=== PATIENT | male | born 1955 | race Caucasian/White ===

== ENCOUNTER 2024-05-21 10:27 | Inpatient (IN) ==
--- NOTE | 2024-04-22 10:02 | PAT Medication Instructions ---
Medication Instructions Date of Service April 22, 2024 Home Medications duloxetine 30 mg capsule,delayed release (Cymbalta) 30 mg PO QAM Turmeric/Curcumin 1,000 mg PO QAM ascorbic acid (vitamin C) 1,000 mg tablet (Vitamin C) 1 g PO QAM cholecalciferol (vitamin D3) 25 mcg (1,000 unit) tablet (Vitamin D3) 25 mcg PO QAM cyanocobalamin (vitamin B-12) 500 mcg tablet 500 mcg PO QAM gabapentin 300 mg capsule 300 mg PO HS multivitamin 1 tab PO QAM omega 6-pxq-wmi-fish oil 1,200 mg (144 mg-216 mg) capsule (Fish Oil) 1 cap PO QAM simvastatin 80 mg tablet 40 mg PO QAM STOP taking 2 weeks before surgery (or as soon as possible if surgery is within 2 weeks) omega 9-ydl-dfg-fish oil 1,200 mg (144 mg-216 mg) capsule (Fish Oil) 1 cap PO QAM Turmeric/Curcumin 1,000 mg PO QAM DO NOT take the morning of surgery multivitamin 1 tab PO QAM ascorbic acid (vitamin C) 1,000 mg tablet (Vitamin C) 1 g PO QAM cholecalciferol (vitamin D3) 25 mcg (1,000 unit) tablet (Vitamin D3) 25 mcg PO QAM cyanocobalamin (vitamin B-12) 500 mcg tablet 500 mcg PO QAM Take morning of surgery With a small sip of water, OTHERWISE NOTHING TO EAT OR DRINK AFTER MIDNIGHT: simvastatin 80 mg tablet 40 mg PO QAM duloxetine 30 mg capsule,delayed release (Cymbalta) 30 mg PO QAM Take evening before surgery gabapentin 300 mg capsule 300 mg PO HS Other Notes If you have any questions please call us at [phone] or [phone] or [phone] or [phone]
--- NOTE | 2024-04-28 11:23 | Anesthesiology Consultation ---
Date of Service April 28, 2024 Assessment & Plan (1) Encounter for pre-operative examination: - awaiting S PCP surgeon ordered pre-operative evaluation 05/06/24. Chart Review Chart Review: Pending: Refer to Additional Notes / Consult section and Patient seen in Pre Admission Testing Teaching & Discussion Pre-Anesthesia Teaching/Discussion Notes: Instructed NPO after midnight before surgery, except medications with 15 cc of water. Medication instructions provided according to the PAT guidelines. History Surgery Operation Date: 05/21/24 07:45 Proposed Procedures p L3-S1 Revision Decompression and Fusion, Spinal Cord Monitoring - Jose Hoff DO Height/Weight Height: 6 ft 4 in Weight: 97.8 kg Allergies Allergy/AdvReac Type Severity Reaction Status Date / Time Penicillins Allergy Intermediate Hives Verified 04/22/24 08:02 Medications Home Medications Medication Instructions Recorded Confirmed Last Taken duloxetine 30 mg capsule,delayed 30 mg PO QAM 05/16/22 04/22/24 Unknown release (Cymbalta) Turmeric/Curcumin 1,000 mg PO QAM 04/22/24 04/22/24 Unknown ascorbic acid (vitamin C) 1,000 mg 1 g PO QAM 04/22/24 04/22/24 Unknown tablet (Vitamin C) cholecalciferol (vitamin D3) 25 25 mcg PO QAM 04/22/24 04/22/24 Unknown mcg (1,000 unit) tablet (Vitamin D3) cyanocobalamin (vitamin B-12) 500 500 mcg PO QAM 04/22/24 04/22/24 Unknown mcg tablet gabapentin 300 mg capsule 300 mg PO HS 04/22/24 04/22/24 Unknown multivitamin 1 tab PO QAM 04/22/24 04/22/24 Unknown omega 0-esk-tgs-fish oil 1,200 mg 1 cap PO QAM 04/22/24 04/22/24 Unknown (144 mg-216 mg) capsule (Fish Oil) simvastatin 80 mg tablet 40 mg PO QAM 04/22/24 04/22/24 Unknown Past Medical History Medical History (Updated 04/28/24 @ 11:49 by Maricel Lira PA-C) Arthritis BPH (benign prostatic hyperplasia) Degenerative disc disease Depression History of epilepsy as a child>last episode at age 19 History of melanoma followed by [facility] dermatology History of tachycardia resolved after ablation/no current cards Hyperlipidemia Neuropathy feet Prostate cancer being monitored (no treatment) Restless leg syndrome Sleep apnea uses oral device (mouth piece) Spinal stenosis Patient denies h/o stroke, heart attack, heart failure, DM, HTN, blood clots/DVTs or blood transfusions. Exercise / Class Metabolic Activity II 4-5 Yardwork/Stairs/Walk up hill (denies chest discomfort or shortness of breath with one flight of stairs) Past Family History Family History Other No family history of adverse response to anesthesia Past Surgical History Surgical History H/O cardiac radiofrequency ablation (2018) H/O laminectomy (2018) L4 and L4 (2 surgeries) History of appendectomy History of arthroscopic knee surgery (2008) left History of cataract surgery (2020) right/left History of colonoscopy History of tonsillectomy History of total hip arthroplasty left/right [place] teeth removed Past Anesthesia History No Hx of Anesthesia Complications and No Family Hx of Anesthesia Complications History of PONV No Hx of PONV and No Hx of Motion Sickness Social History Smoking Status: Never smoker Do You Dip or Chew Tobacco: No Hx Alcohol Use: Yes alcohol intake frequency: holidays/special occasions only substance use type: does not use Review of Systems Patient denies chest pain, shortness of breath, dyspnea on exertion, reflux, fever, chills, cough, wheezing, or palpitations. Physical Exam Vital Signs Vitals BP 134/84 P 83 TEMP 98.2 SP02 96% on RA RESP 18 Physical Patient resting comfortably in chair in no acute distress, alert and oriented, responding appropriately throughout visit Full cervical extension range of motion without pain TMD 3.5 finger breadths Mallampati Score 3 Dentition: intact, denies chipped or loose teeth, caps/crowns, implants or bridges Lungs: normal respiratory effort. Good air movement, clear throughout to auscultation, no adventitious breath sounds Cardiac: regular rate and rhythm, no murmurs noted Carotid arteries: negative bruit bilat Lab Results Anesthesia Preop Results Results Anesthesia Widget: WBC 5.61 K/ul (4.8-10.8) 04/28/24 Hgb 14.7 g/dl (14.0-18.0) 04/28/24 Hct 44.4 % (42.0-52.0) 04/28/24 Plt 230 K/uL (130-400) 04/28/24 Na 140 mmol/L (136-145) 04/28/24 K 4.3 mmol/L (3.5-5.1) 04/28/24 Cl 105 mmol/L (98-107) 04/28/24 CO2 29 mmol/L (21-32) 04/28/24 BUN 17 mg/dl (6-23) 04/28/24 Creat 1.08 mg/dl (0.6-1.4) 04/28/24 Glucose Level 102 mg/dl (70-99(Fasting)) H 04/28/24 PT 10.7 Seconds (9.0-12.0) 04/28/24 PTT 26 Seconds (21-31) 04/28/24 INR 1.0 (0.9-1.1) 04/28/24 Urine Color Yellow 04/28/24 Urine Appearance Clear (Clear) 04/28/24 Urine pH 5.5 (4.5-7.5) 04/28/24 Urine Specific [place] 1.016 (1.000-1.030) 04/28/24 Urine Protein Negative (Negative) 04/28/24 Urine Glucose (UA) Negative (Negative) 04/28/24 Urine Ketones Negative (Negative) 04/28/24 Urine Blood Negative (Negative) 04/28/24 Urine Nitrite Negative (Negative) 04/28/24 Urine Bilirubin Negative (Negative) 04/28/24 Urine Urobilinogen Negative (Negative) 04/28/24 Urine Leukocyte Esterase Negative (Negative) 04/28/24 Blood Type A Positive 04/28/24 Antibody Screen NEGATIVE 04/28/24 Testing Electrocardiogram Date: 04/28/24 NSR, rate 74 bpm Chest X-Ray Date: 02/13/24 No active disease. Echocardiogram Date: 02/19/24 EF 60-64% Grade I diastolic dysfunction Normal LV wall motion Mild tricuspid regurgitation Mildly enlarged aortic root, 4.1 cm Mildly enlarged ascending aorta, 3.8 cm Other Testing Cardiac event monitor 02/23/24 Sinus rhythm (51-185, avg 76) 10 SVT runs Rare isolated SVEs, SVE couplets, SVE triplets, isolated VEs, VE couplets and VE triplets Ventricular bigeminy and trigeminy were present
[2024-05-21] MEDS ORDERED: ePHEDrine sulfate 50 MG/ML AMP IV PRN (11:02)
[2024-05-21] MEDS ORDERED: PROMETHAZINE HCL 6.25 MG in SODIUM CHLORIDE 0.9% 50 ML IV PRN (11:02)
[2024-05-21] MEDS ORDERED: HYDROmorphone INJ 2 MG/ML SYR/VIAL IV PRN (11:02)
[2024-05-21] MEDS ORDERED: DROPERIDOL 5 MG/2 ML VIAL IV PRN (11:02)
[2024-05-21] MEDS ORDERED: ATROPINE SULFATE 0.1 MG/ML 10ML SYR IV PRN (11:02)
[2024-05-21] MEDS ORDERED: fentaNYL citrate PF 100 MCG/2 ML VIAL ONE (11:04)
[2024-05-21] MEDS: SODIUM CHLORIDE 0.9% 1,000 ML IV SCH (11:14)
[2024-05-21] MEDS: ACETAMINOPHEN 500 MG TAB PO SCH (11:15)
[2024-05-21] MEDS: GABAPENTIN 300 MG CAP PO SCH ×2 (11:15→20:18)
--- NOTE | 2024-05-21 11:32 | History & Physical Bridge Note ---
Date of Service May 21, 2024 History & Physical Bridge Note I have examined the patient, reviewed the History & Physical and in the interval since the performance of the History & Physical I have noted the following changes of clinical significance: no changes noted
--- NOTE | 2024-05-21 11:33 | History & Physical Report ---
Date of Service May 21, 2024 Assessment & Plan (1) Lumbosacral spondylosis with radiculopathy: Plan: L3-S1 revision decompression and fusion History of Present Illness Chief Complaint: Back and leg pain Primary Care Provider: Jere Bullard DO This is a 69-year-old male who presents with chronic persistent back and leg pain after failing course of nonoperative care is here for surgical invention. Allergies Allergy/AdvReac Type Severity Reaction Status Date / Time Penicillins Allergy Intermediate Hives Verified 05/21/24 10:52 Home Medications Medication Instructions Recorded Confirmed Type duloxetine 30 mg capsule,delayed 30 mg PO QAM 05/16/22 05/21/24 History release (Cymbalta) Turmeric/Curcumin 1,000 mg PO QAM 04/22/24 05/21/24 History ascorbic acid (vitamin C) 1,000 mg 1 g PO QAM 04/22/24 05/21/24 History tablet (Vitamin C) cholecalciferol (vitamin D3) 25 25 mcg PO QAM 04/22/24 05/21/24 History mcg (1,000 unit) tablet (Vitamin D3) cyanocobalamin (vitamin B-12) 500 500 mcg PO QAM 04/22/24 05/21/24 History mcg tablet gabapentin 300 mg capsule 300 mg PO HS 04/22/24 05/21/24 History multivitamin 1 tab PO QAM 04/22/24 05/21/24 History omega 4-asx-jsn-fish oil 1,200 mg 1 cap PO QAM 04/22/24 05/21/24 History (144 mg-216 mg) capsule (Fish Oil) simvastatin 80 mg tablet 40 mg PO QAM 04/22/24 05/21/24 History Past Med/Surg History Problem List (Updated 05/21/24 @ 11:32 by Jose Hoff DO) Lumbosacral spondylosis with radiculopathy Encounter for pre-operative examination Medical History (Updated 05/21/24 @ 11:32 by Jose Hoff DO) Spinal stenosis Degenerative disc disease Arthritis Prostate cancer being monitored (no treatment) BPH (benign prostatic hyperplasia) History of melanoma followed by [facility] dermatology Depression Neuropathy feet Restless leg syndrome History of epilepsy as a child>last episode at age 19 History of tachycardia resolved after ablation/no current cards Hyperlipidemia Sleep apnea uses oral device (mouth piece) Surgical History History of total hip arthroplasty left/right History of arthroscopic knee surgery (2008) left History of colonoscopy History of appendectomy [place] teeth removed History of tonsillectomy History of cataract surgery (2020) right/left H/O cardiac radiofrequency ablation (2019) H/O laminectomy (2019) L4 and L4 (2 surgeries) Family History Other No family history of adverse response to anesthesia Social History Smoking Status: Never smoker Second Hand Exposure: Yes (as a child); Do You Dip or Chew Tobacco: No; Hx Alcohol Use: Yes Preferred Language: Hungarian Therapeutic Case Manager Required: No Beliefs That Will Affect Care: Jain Jain Beliefs: uatsdin Current Living Situation: Spouse Feels Safe at Home: Yes Safety Concerns: Feels Safe At This Time Assistive Devices: Glasses Assistive Devices Comment: reading glasses Physical Exam Physical Exam: Patient is alert and oriented Heart regular in rhythm Lungs clear Results & Data Results & Data Vital Signs (Past 12 Hours) Vital Signs Temp Pulse Resp BP Pulse Ox O2 Del Method 05/21/24 10:54 36.7 C 78 18 154/91 H 97 Room Air
[2024-05-21] MEDS ORDERED: PROPOFOL IV EMULSION 10 MG/ML 20 ML VIAL IV ONE (11:40)
[2024-05-21] MEDS ORDERED: ONDANSETRON INJ 2 MG/ML 2 ML VIAL ONE (11:40)
[2024-05-21] MEDS ORDERED: DEXAMETHASONE SOD INJ 4 MG/ML VIAL ONE (11:40)
[2024-05-21] MEDS ORDERED: ROCURONIUM BROMIDE 10 MG/ML 5 ML VIAL IV ONE ×2 (11:40→12:15)
[2024-05-21] MEDS ORDERED: LIDOCAINE 2% 2 ML VIAL/AMP(20MG/ML) INFIL ONE (11:40)
[2024-05-21] MEDS ORDERED: GLYCOPYRROLATE 0.2 MG/ML VIAL ONE (11:42)
[2024-05-21] MEDS: CLINDAMYCIN/D5W 900 MG/50 ML BAG IV SCH (11:51)
[2024-05-21] MEDS ORDERED: diphenhydrAMINE 50 MG/ML VIAL ONE (12:15)
[2024-05-21] MEDS ORDERED: ePHEDrine sulfate 50 MG/ML AMP ONE (12:36)
[2024-05-21] MEDS: BUPIVACAINE/EPINEPHRINE 0.25% 1:200,000 30 ML VIAL ONE (12:46)
[2024-05-21] MEDS ORDERED: PHENYLEPHRINE HCL 10 MG/ML VIAL ONE (12:49)
[2024-05-21] MEDS: FLOSEAL HEMOSTATIC MATRIX 10ML TOP ONE ×3 (14:40→16:07)
[2024-05-21] MEDS ORDERED: SUGAMMADEX SODIUM 200 MG/2 ML VIAL IV ONE (14:43)
--- NOTE | 2024-05-21 14:55 | Fluoroscopy Report ---
FL lumbar spine 2-3V CLINICAL HISTORY: L3-S1 DECOMPRESSION FUSION WITH INTERBODY TECHNIQUE: 2 views were obtained with the C-arm in the OR with the above procedure. Total fluoroscopy time was 42.3 seconds. Radiation dose was 27.7 mGy. Comparison: Comparison is made to CT lumbar spine 04/10/1994 FINDINGS/IMPRESSION: Intraoperative images were obtained of L3-S1 discectomy and fusion. Please correlate with intraoperative fluoroscopy and operative report. ACT 112: Negative or not required by law. Electronically signed by: Bhaskar Ornelas M.D. 05/21/2024 2:54 PM
--- NOTE | 2024-05-21 14:56 | Operative Report ---
Post Operative Report Pre & Post Diagnosis Operation Date: 05/21/24 12:05 Pre-Op Diagnosis: #1 lumbar spondylosis with radiculopathy. #2 lumbar spondylolisthesis with pars defect L5-S1. #3 degenerative scoliosis. Post-Op Diagnosis: Same I identified the patient and participated in the time-out.: Yes Procedure Operation Date: 05/21/24 12:05 Actual Procedures #1 revision decompression with bilateral medial facetectomies and foraminotomies L3-L4, L4-L5 and L5-S1. #2 posterior spinal fusion L3- S1. #3 placement posterior instrumentation L4-S1. #4 interbody fusion L4-L5 L5-S1. #5 placement of Spira 11 x 26 mm at L4-L5 and 14 x 26 mm x 2 at L5-S1. #6 placement locally harvested morselized autograft posterior gutters. #7 placement fuse collagen sponge, with Koros in the posterior lateral gutters and os design interbody space. #8 application of versa wrap over the exposed dura. Surgeon Jose Hoff, DO [employer] China Evans Estimated Blood Loss 700 Findings Consistent with Post-Op Diagnosis Specimens None Indications This is a 69-year-old male presents problems diagnosis of failed course of nonoperative care is here for surgical invention. Description of Procedure Patient was met with identified informed consent obtained. Patient was then taken to the operative suite after undergoing intubation placed in a prone position on the Adalberto table on top of the Mario frame. All bony promises well-padded eyes inspected to ensure no external pressure placed upon the. This point the lumbar spine was prepped and draped in normal sterile fashion. Sharp dissection with the assistance of Bovie cautery from down to and exposing the remaining lamina transverse processes of L3-L4-L5 and sacral ala bilaterally. From a caudal cephalad fashion revision complete laminectomy of L5 was performed. Obvious bilateral pars defect noted. Significant foraminal stenosis was identified and addressed. I then performed a revision laminectomy of L4 with bilateral medial facetectomies and foraminotomies again addressing severe foraminal disease. Partial laminectomy of L3 was also performed including bilateral medial facetectomies. Pedicle screws then placed in L4-L5 S1 levels bilaterally with assistance of fluoroscopy in the proper size elias placed. By way of transforaminal approach on the right discectomy of L5-S1 was performed endplates corrected to subcortical bleeding bone and a 14 x 26 mm Spira cage filled with os design bone graft tapped in position. Then proceeded to the left transforaminal region at L5-S1. Discectomy again performed endplates guided to subcortical main bone and a second 14 x 26 mm Spira cage filled with os designed tapped in position. Then proceeded L4-L5 and by way of transforaminal approach on the left a complete discectomy was performed endplates printed to subcortical and bone and a 11 x 26 mm Spira cage filled with os design tapped into position. The rods were then locked in final position bilaterally. The transverse processes of L3-L4-L5 and the sacral ala burred to subcortical bleeding bone. Infuse collagen sponge, with Koros and local autograft placed in the posterior gutters. 15 round ASHLEY drain inserted. Versa wrap placed over the exposed dura. Incision was then closed with 1 Vicryl fascia 2-0 Vicryl subcutaneously and 4 Monocryl for final skin closure. Steri-Strips and sterile dressing placed. Patient waken taken to PACU stable condition. Please note spinal cord monitoring was utilized at the procedure no changes noted. China Evans was present at the entire surgery none patient positioning complex portion of the surgery and possible closure. Im ordering 20 grams of Triple Penn Collagen Powder ([employer] [id number]) to treat an incision wound that was caused by a spine procedure. The incision is approximately 2 cm(W) x 4 cm(L) into the joint (D) in size and is a full thickness wound. Triple Penn collagen comes in 1 gram packets so 20 packets were ordered. Given the size of the wound, with light to moderate exudate I chose to order a 20 day supply. The patient will be provided instructions for proper application of the collagen wound kit. The patient will be asked to apply the collagen powder daily and then cover it with sterile dressings dispensed. Collagen was selected as I expect the collagen to attract monocytes and fibroblasts, act as a sacrificial substrate for MMPs, and ultimately proved a matrix for tissue and vessel growth. The collagen will act as a primary dressing in this scenario. It is medically necessary for proper healing of these wounds to improve bioavailability and contact with each wound surface, this is also to help prevent infection of wounds and promote healing ultimately leading to a better healing outcome and limit the risk of infection. I attest to the content of the Intraoperative Record and any orders documented therein. Any exceptions are noted below.
[2024-05-21] MEDS: ceFAZolin 330 MG/ML 1 GM VIAL ONE (16:07)
--- NOTE | 2024-05-21 16:07 | Anesthesiology Progress Note ---
Date of Service May 21, 2024 Anesthesia Post Procedure Vital Signs Vital Signs: Temp Pulse Resp BP Pulse Ox O2 Del Method O2 Flow Rate 05/21/24 16:00 78 13 129/73 98 Nasal Cannula 2 05/21/24 15:45 36.4 C L 80 13 129/75 99 Nasal Cannula 2 05/21/24 15:35 82 12 125/81 98 Oxymask 2 05/21/24 15:25 80 13 135/80 100 Oxymask 9 05/21/24 15:15 78 14 130/75 100 Oxymask 9 05/21/24 15:07 36.2 C L 84 16 141/85 H 100 Oxymask 9 05/21/24 10:54 36.7 C 78 18 154/91 H 97 Room Air Transfer of Care Handoff Completed per policy Notes Mental Status: alert / awake / arousable and participated in evaluation Patient Amnestic to Procedure: Yes Nausea / Vomiting: adequately controlled Pain: adequately controlled Airway Patency, RR, SpO2: stable & adequate BP & HR: stable & adequate Hydration State: stable & adequate Anesthetic Complications: no major complications apparent and Pt Satisfied with anesthetic care
[2024-05-21] MEDS: LR 15ML/HR IV SCH (16:10)
[2024-05-21] MEDS: LR 60ML/HR IV SCH (16:10)
[2024-05-21] MEDS ORDERED: METOCLOPRAMIDE HCL INJ 5 MG/ML 2 ML VIAL IV PRN (16:11)
[2024-05-21] MEDS ORDERED: PROMETHAZINE 12.5 MG/50.5 ML BAG IV PRN (16:11)
[2024-05-21] MEDS ORDERED: ALUMINUM/MAGNESIUM SUSP 30 ML UDC PO PRN (16:11)
[2024-05-21] MEDS ORDERED: HYDROmorphone INJ 1 MG/ML SYRINGE IV PRN (16:11)
[2024-05-21] MEDS ORDERED: ONDANSETRON INJ 2 MG/ML 2 ML VIAL IV PRN (16:11)
[2024-05-21] MEDS ORDERED: HYDROmorphone INJ 0.5 MG/0.5 ML SYR IV PRN (16:11)
[2024-05-21] MEDS ORDERED: ACETAMINOPHEN 1,000 MG/100 ML VIAL IV PRN (16:11)
[2024-05-21] MEDS ORDERED: hydrOXYzine HCl 25 MG TAB PO PRN (16:11)
[2024-05-21] MEDS ORDERED: bisacodyL 10 MG SUPP PR PRN (16:11)
[2024-05-21] MEDS ORDERED: ACETAMINOPHEN 500 MG TAB PO PRN (16:11)
[2024-05-21] MEDS ORDERED: MAGNESIUM HYDROXIDE SUSP 30 ML UDC PO PRN (16:11)
[2024-05-21] MEDS ORDERED: DO NOT ADMINISTER FLU VACCINE PRN (16:11)
[2024-05-21] MEDS ORDERED: LORazepam 0.5 MG TAB PO PRN (16:11)
[2024-05-21] MEDS ORDERED: ONDANSETRON 4 MG OD TAB PO PRN (16:11)
[2024-05-21] MEDS ORDERED: DO NOT ADMINISTER PNEUMOCOCCAL VACCINE PRN (16:11)
[2024-05-21] MEDS ORDERED: NALOXONE HCL 0.4 MG/1 ML VIAL/CARP IV PRN (16:11)
[2024-05-21] MEDS ORDERED: FAMOTIDINE 20 MG TAB PO PRN (16:11)
[2024-05-21] MEDS ORDERED: LORazepam 2 MG/1 ML VIAL IV PRN (16:11)
[2024-05-21] MEDS ORDERED: SOD PHOSPHATE/SOD BIPHOSPHATE ENEMA 132 ML BTL PR PRN (16:11)
[2024-05-21] MEDS: oxyCODONE HCL IR 5 MG TAB (IMMEDIATE RELEASE) PO PRN (17:13)
--- NOTE | 2024-05-21 17:32 | Consultation ---
Date of Consultation May 21, 2024 Assessment & Plan (1) Lumbosacral spondylosis with radiculopathy: (2) Encounter for pre-operative examination: (3) Arthritis: (4) Prostate cancer: (5) BPH (benign prostatic hyperplasia): (6) Depression: (7) Neuropathy: (8) Hyperlipidemia: Plan Assessment and plan: Lumbar radiculopathy s/p L3-S1 [id number] Pain control/DVT prophylaxis/PT/OT per primary team Hx depression/neuropathy: Continue gabapentin/duloxetine Hx HLD: Continue simvastatin A total of 45 minutes was spent on reviewing diagnostic imaging/chart review/facilitating plan of care/discussion with consultants We recommend routine blood work in a.m. Will follow with you Full code Supervising Physician Co-Signing Physician Notes Patient is a 69-year-old male with history of hypertension, lumbar radiculopathy, BPH and other medical problems was consulted for postop medical management. Patient underwent lumbar decompression, fusion surgery by Dr. Hoff for lumbar spondylosis with radiculopathy. Patient complains of lower back pain at surgical site postoperatively but otherwise feels well. Denies any chest pain, dyspnea, nausea, vomiting, abdominal pain. Please review HPI for complete details. Physical Exam: Vitals signs as noted above General Appearance:Moderately built and nourished, no apparent distress Head: normocephalic, Atraumatic Eyes: normal inspection, EOMI Neck: supple, Trachea midline Respiratory/Chest: Normal breath sounds, CTA, No accessory muscle use Cardiovascular: S1, S2, No murmur Abdomen/GI:Soft, Non tender, Bowel sounds present Back: Surgical site in dressing, drain Extremities/Musculoskeletal:normal inspection, no edema Neurologic/Psych:AAOX3, grossly no focal neurological deficits Skin: normal color, warm Lumbosacral spondylosis with radiculopathy S/P lumbar decompression, fusion surgery by Dr. Hoff Monitor for postop anemia Incentive spirometry DVT prophylaxis as per primary team Pain control PT OT as able Expect leukocytosis is currently on dexamethasone I personally interviewed and examined at bedside. Patient's care is coordinated with Corey ZAMBRANO. I have reviewed the advanced practitioner's documentation, and I agree with plan of care. Please refer to the documentation above for details of patient's presentation and for discussion of other issues. I spent a total [id number] coordinating, documenting, and providing care for this patient excluding time spent in the performance of separately billed services. History of Present Illness Requesting Physician: Jose Hoff DO Reason for Consultation: S/p L3-S1 decompression and fusion Attending Physician: Jose Hoff DO History of Present Illness The patient is a 69-year-old male with a past medical history of HLD, lumbar radiculopathy, degenerative scoliosis who presents to [facility] on 05/21/2024 s/p L3-S1 decompression and fusion. We are asked see the patient for postop medical management. On exam, The patient denies any complaints. He has full ROM, denies any numbness/tingling. Does report some back pain but denies any shortness of breath or chest pain/nausea/vomiting/diarrhea. Vital signs are stable. Allergies Allergy/AdvReac Type Severity Reaction Status Date / Time Penicillins Allergy Intermediate Hives Verified 05/21/24 10:52 Home Medications Medication Instructions Recorded Confirmed Type duloxetine 30 mg capsule,delayed 30 mg PO QAM 05/16/22 05/21/24 History release (Cymbalta) Turmeric/Curcumin 1,000 mg PO QAM 04/22/24 05/21/24 History ascorbic acid (vitamin C) 1,000 mg 1 g PO QAM 04/22/24 05/21/24 History tablet (Vitamin C) cholecalciferol (vitamin D3) 25 25 mcg PO QAM 04/22/24 05/21/24 History mcg (1,000 unit) tablet (Vitamin D3) cyanocobalamin (vitamin B-12) 500 500 mcg PO QAM 04/22/24 05/21/24 History mcg tablet gabapentin 300 mg capsule 300 mg PO HS 04/22/24 05/21/24 History multivitamin 1 tab PO QAM 04/22/24 05/21/24 History omega 8-toz-kci-fish oil 1,200 mg 1 cap PO QAM 04/22/24 05/21/24 History (144 mg-216 mg) capsule (Fish Oil) simvastatin 80 mg tablet 40 mg PO QAM 04/22/24 05/21/24 History Patient History Medical History (Updated 05/21/24 @ 11:32 by Jose Hoff DO) Spinal stenosis Degenerative disc disease Arthritis Prostate cancer being monitored (no treatment) BPH (benign prostatic hyperplasia) History of melanoma followed by [facility] dermatology Depression Neuropathy feet Restless leg syndrome History of epilepsy as a child>last episode at age 19 History of tachycardia resolved after ablation/no current cards Hyperlipidemia Sleep apnea uses oral device (mouth piece) Surgical History History of total hip arthroplasty left/right History of arthroscopic knee surgery (2008) left History of colonoscopy History of appendectomy [place] teeth removed History of tonsillectomy History of cataract surgery (2020) right/left H/O cardiac radiofrequency ablation (2018) H/O laminectomy (2019) L4 and L4 (2 surgeries) Family History Other No family history of adverse response to anesthesia Social History Smoking Status: Never smoker Second Hand Exposure: Yes (as a child); Do You Dip or Chew Tobacco: No; Hx Alcohol Use: Yes Preferred Language: Guyanese [employer] Supplies Sales Representative Required: No Beliefs That Will Affect Care: Taoism Taoism Beliefs: religious Current Living Situation: Spouse Feels Safe at Home: Yes Safety Concerns: Feels Safe At This Time Assistive Devices: Glasses Assistive Devices Comment: reading glasses Review of Systems Review of Systems: All systems reviewed & are unremarkable except as noted in HPI & below Physical Exam Constitutional: WD/WN, vitals as above Eyes: PERRL, conjunctivae normal, anicteric sclerae ENMT: external ear and nose normal, oropharynx normal Neck: trachea midline, no thyromegaly Respiratory: normal respiratory effort, lungs clear to auscultation Cardiovascular: RRR, no murmur, no edema Gastrointestinal (Abdomen): normal bowel sounds, soft, nontender, no hepatosplenomegaly Musculoskeletal: no cyanosis or clubbing, extremities motor strength 5/5 (No numbness/tingling, full ROM, bulb drain in place) Skin: no rashes, warm and dry Neurologic: PERRL, EOMI, accommodation nl, no face palsy, no dysarthria Psychiatric: A+Ox3, euthymic affect Lymphatic: no cervical or axillary lymphadenopathy Results & Data Vital Signs (Past 12 Hours) Vital Signs Temp Pulse Pulse Resp BP Pulse Ox O2 Del Method 05/21/24 16:48 36.4 C L 81 16 127/73 95 Room Air 05/21/24 16:20 36.4 C L 84 16 128/76 95 Room Air 05/21/24 16:00 78 13 129/73 98 Nasal Cannula 05/21/24 15:45 36.4 C L 80 13 129/75 99 Nasal Cannula 05/21/24 15:35 82 12 125/81 98 Oxymask 05/21/24 15:25 80 13 135/80 100 Oxymask 05/21/24 15:15 78 14 130/75 100 Oxymask 05/21/24 15:07 36.2 C L 84 16 141/85 H 100 Oxymask 05/21/24 10:54 36.7 C 78 18 154/91 H 97 Room Air O2 Flow Rate 05/21/24 16:48 05/21/24 16:20 05/21/24 16:00 2 05/21/24 15:45 2 05/21/24 15:35 2 05/21/24 15:25 9 05/21/24 15:15 9 05/21/24 15:07 9 05/21/24 10:54 Diagnostic Findings Laboratory Results Blood Type A Positive 05/21/24 10:51 Antibody Screen NEGATIVE 05/21/24 10:51 Crossmatch See Detail 05/21/24 10:51 Impressions Lumbar Spine X-Ray 05/21/24 11:50 FL lumbar spine 2-3V CLINICAL HISTORY: L3-S1 DECOMPRESSION FUSION WITH INTERBODY TECHNIQUE: 2 views were obtained with the C-arm in the OR with the above procedure. Total fluoroscopy time was 42.3 seconds. Radiation dose was 27.7 mGy. Comparison: Comparison is made to CT lumbar spine 04/10/1994 FINDINGS/IMPRESSION: Intraoperative images were obtained of L3-S1 discectomy and fusion. Please correlate with intraoperative fluoroscopy and operative report. ACT 112: Negative or not required by law. Electronically signed by: Bhaskar Ornelas M.D. 05/21/2024 2:54 PM
[2024-05-21] MEDS: DOCUSATE SODIUM/SENNA 50/8.6MG TAB PO SCH (20:18)
[2024-05-21] MEDS: CLINDAMYCIN/D5W 600 MG/50 ML BAG IV SCH (20:22)
[2024-05-22 05:15] LABS: Basophils # (auto) 0.01 K/uL (0.00-0.20); Basophils % (auto) 0.1 %; Hematocrit (blood only) 36.5 % (42.0-52.0); Hemoglobin 12.2 g/dl (14.0-18.0); Immature Granulocytes # (auto) 0.04 K/uL (0.01-0.20); Immature Granulocytes % (auto) 0.3 %; Lymphocytes # (auto) 0.77 K/uL (1.20-3.40); Lymphocytes % (auto) 6.4 %; Mean Corpuscular Hemoglobin 32.4 pg (25.0-34.0); Mean Corpuscular Hgb Conc 33.4 g/dL (32.0-36.0); Mean Corpuscular Volume 97.1 fL (80.0-100.0); Mean Platelet Volume 10.5 fL (9.4-12.4); Monocytes # (auto) 0.96 K/uL (0.11-0.59); Monocytes % (auto) 7.9 %; Neutrophils # (auto) 10.33 K/uL (1.40-6.50); Neutrophils % (auto) 85.3 %; Platelet Count 215 K/uL (130-400); RDW Coefficient of Variation 13.2 % (11.5-14.5); RDW Standard Deviation 47.2 fL (36.4-46.3); Red Blood Count 3.76 M/uL (4.70-6.10); White Blood Count 12.11 K/ul (4.8-10.8)
[2024-05-22 05:31] LABS: BUN Creatinine Ratio 16.5 (10-20); Calcium 8.7 mg/dl (8.6-10.3); Creatinine Clr Calc Pharmacy 80.8 ml/min; Potassium 4.8 mmol/L (3.5-5.1)
[2024-05-22] MEDS: POLYETHYLENE (MIRALAX) 17 GM PACK PO SCH (05:59)
[2024-05-22] MEDS: dexAMETHasone 6 MG in SYRINGE 0 ML IV SCH (08:22)
[2024-05-22] MEDS: CHOLECALCIFEROL 25 MCG (1000 UNITS) TAB PO SCH (08:22)
[2024-05-22] MEDS: SIMVASTATIN 40 MG TAB PO SCH (08:22)
[2024-05-22] MEDS: DULoxetine HCL 30 MG CAP PO SCH (08:22)
[2024-05-22] MEDS: CYANOCOBALAMIN (B-12) 500 MCG TABLET PO SCH (08:22)
[2024-05-22] MEDS ORDERED: ASCORBIC ACID 500 MG TAB PO SCH (09:00)
[2024-05-22] MEDS: ASCORBIC ACID 500 MG TAB PO SCH (09:55)
--- NOTE | 2024-05-22 10:29 | Orthopedic Progress Note ---
Date of Service May 22, 2024 Assessment & Plan (1) Lumbosacral spondylosis with radiculopathy: Plan: At this time we will continue physical therapy monitor his ASHLEY output hopefully discharge home in the next few days. Admission and Anticipated Discharge Date Admission Date: May 21, 2024 Subjective Patient's back pain is controlled leg symptoms markedly improved Physical Exam Physical Exam: Patient is in the chair at the bedside. Is comfortable. Distracted testing. Results & Data Vital Signs (Past 12 Hours) Vital Signs Temp Pulse Resp BP Pulse Ox O2 Del Method 05/22/24 07:39 36.7 C 77 16 112/73 94 Room Air 05/22/24 03:27 36.3 C L 80 15 127/71 95 Room Air 05/21/24 23:02 36.7 C 89 18 112/70 94 Room Air
--- NOTE | 2024-05-22 11:03 | Hospitalist Progress Note ---
Date of Service May 22, 2024 Assessment & Plan (1) Lumbosacral spondylosis with radiculopathy: (2) Encounter for pre-operative examination: (3) Arthritis: (4) Prostate cancer: (5) BPH (benign prostatic hyperplasia): (6) Depression: (7) Neuropathy: (8) Hyperlipidemia: Plan Patient is a 69-year-old male with history of hypertension, lumbar radiculopathy, BPH and other medical problems who underwent lumbar decompression, fusion surgery by Dr. Hoff for lumbar spondylosis with radiculopathy. Lumbosacral spondylosis with radiculopathy S/P lumbar decompression, fusion surgery by Dr. Hoff on 05/21/24 Monitor for postop anemia Incentive spirometry DVT prophylaxis as per primary team Pain control PT OT as able Hx depression/neuropathy Continue gabapentin/duloxetine Hx HLD: Continue simvastatin Continue supplements as ordered. Diet: Regular DVT prophylaxis: per primary surgical team Dispo: per primary team Thank you for this consultation. We will follow the patient with you during their hospital stay. You can reach a member of the [facility] Hospitalist Team 01/01 via the hospitalist role on tiger text. Admission and Anticipated Discharge Date Admission Date: May 21, 2024 Subjective patient was seen in the a.m. laying in bed Noted that his pain was controlled, had been up and walking the halls He stated he was a bit sore from that but overall doing well, denied acute concerns Denies any chest pain, shortness of breath heart palpitations. Has not yet started passing gas Review of Systems Review of Systems: All systems reviewed & are unremarkable except as noted in Subjective Physical Exam Physical Exam: General: Alert, oriented. No acute distress Psych: Appropriate mood and affect Neuro: difficulty with movements in the bed, lower back bandaged HEENT: NC/AT CV: RRR Resp: Breath sounds clear bilaterally, no increased effort of breathing Abdomen: Soft, nontender Extremities: No edema in lower extremities bilaterally. Results & Data Results & Data Vital Signs (Past 12 Hours) Vital Signs Temp Pulse Resp BP Pulse Ox O2 Del Method 05/22/24 07:39 36.7 C 77 16 112/73 94 Room Air 05/22/24 03:27 36.3 C L 80 15 127/71 95 Room Air
[2024-05-22] MEDS: traMADol HCL 50 MG TABLET PO PRN (18:15)
[2024-05-22] MEDS: diphenhydrAMINE Capsule 25 MG CAP PO PRN (21:31)
--- OUTSIDE RECORDS SUMMARY | 2024-05-22 22:04 | External Medical Summary | Summary of Care ---
Author Name Unknown Organization [facility] [address] [facility] [address] Phone [phone] Care Team Providers Care News Videotape Editor Name Role Phone Jere Bullard DO Primary Care Provider [phone] Reason for Visit * Reason Onset Date Comments Appointment 02/12/2024 Encounter Details Date Type Department Care Team (Late st Contact Info) Description 02/12/2024 Telephone Family Practice [facility] [address] [facility] [place] [address] Jere Bullard DO [address] [facility] [place] [address] Appointment Allergies Active Allergy Reactions Criticality Noted Date Comments Penicillins Hives 10/08/2016 documented as of this encounter (statuses as of 05/13/2024) Medications Ascorbic Acid 1000 MG Oral Tablet Take 1 Tablet by mouth in the morning. Active Cyanocobalamin 100 MCG Oral Tablet Take 1 Tablet by mouth in the morning. Active Reliance 3-6-9 Oral Capsule Take by mouth. Ac tive Glucosamine-Cho ndroitin 500-400 MG Oral Tablet Take 1 Tablet by mouth in the morning. Active Triamcinolone Acetonide 0.1 % External Cream (Aristocort) 3 Active Sildenafil Citrate 100 MG Oral Tablet Take 1 Tablet by mouth. 2 Active Multi-Vitamin Oral Tablet Take 1 Tablet by mouth in the morning. Active Fluticasone Propionate 50 MCG/ACT Nasal Suspension (Flonase) Administer 2 Sprays into each nostril in the morning. 2 Active Simvastatin 80 MG Oral Tablet (Zocor) Take 0.5 Tablets by mouth in the morning. 30 Tablet 5 3 Active tiZANidine HCl 2 MG Oral Tablet (Zanaflex)Indic ations:Spasm of muscle Take 1 Tablet by mouth every 6 hours as needed for Muscle spasms. 30 Tablet 3 Active DULoxetine HCl 30 MG Oral Capsule Delayed Release Particles (Cymbalta) Take 1 Capsule by mouth in the morning. 30 Capsule 11 4 Active Respiratory Therapy Supplies Device Use as directed. OAT Active Iron-Vitamin C 65-125 MG Oral Tablet (Vitron C) Take 1 tablet by mouth every other day as tolerated for PLMD 45 Tablet 1 4 Active Gabapentin 300 MG Oral Capsule (Neurontin) Take 1 Capsule by mouth at bedtime. 30 Capsule 5 4 Active documented as of this encounter (statuses as of 05/13/2024) Active Problems Problem Noted Date Diagnosed Date Enlargement of aortic root 02/22/2024 Overview (02/22/2024): Recheck 03/05 Prostate cancer 02/14/2023 Neuropathy of right lower extremity 02/14/2023 Impaired fasting glucose 02/14/2023 PANCHO (obstructive sleep apnea) 07/25/2022 Pure hypercholesterolemia 07/25/2022 documented as of this encounter (statuses as of 05/13/2024) Immunizations Name Administration Dates Next Due COVID-19, MRNA-LNP, PF, 50 M CG/0.5 mL, 12 YRS AND ABOVE, IM (MODERNA-Spikevax) 05/10/2023 Pneumococcal Conjugate Vacc, 13 Valent (Prevnar) 02/14/2019,03/28/2018 Pneumococcal Polysaccharide PPV23 (Pneumovax) 04/28/2020,05/09/2007 Season Influenza, Quad, PF, Adjuvanted, 65+ Yrs, IM (FLUAD) 03/07/2023,04/11/2022,03/03/2021,02/02 TD - Tetanus/Diptheria (ADULT) 06/19/2008 Zoster Vaccine Recombinant (Shingrix) 07/09/2019 ,03/07/2019 documented as of this encounter Social History Tobacco Use Types Packs/Day Years Used Date Smoking Tobacco: Never Smokeless Tobacco: Never Alcohol Use Standard Drinks/Week Comments No 0 (1 standard drink = 0.6 oz pur e alcohol) Hunger Vital Sign Answer Date Recorded Within the past 12 months, y ou worried that your food would run out before you got the money to buy more. Never true 04/01/20 24 Within the past 12 months, t he food you bought just didn't last and you didn't have money to get more. Never true 04/01/2024 Childcare Answer Date Recorded Do you feel overwhelmed with taking care of a child, family member or friend? No 04/01/2024 Does your family need help f inding childcare? (Household - for ages 0-17 years) Not on file 04/01/2024 Clothing Answer Date Recorded Have you been unable to get clothing when it was really needed? No 04/01/2024 Is your family able to get c lothes or diapers when needed? (Household - for ages 0-17 years) Not on file 04/01/2024 Personal Safety Answer Date Recorded Do you feel unsafe or have concerns for your saf ety? No 04/01/2024 Do you have concerns for you r family's safety? (Household - for ages 0-17 years) Not on file 04/01/2024 Utilities Answer Date Recorded Do you have trouble paying y our heating, water, or electric bill? No 04/01/2024 Is your family able to pay t he heat, water, or electric bill? (Household - for ages 0-17 years) Not on file 04/01/2024 Does your family have access to good internet? (Household - for ages 0-17 years) Not on file 04/01/2024 Employment Status Answer Date Recorded Are you unemployed or without regular income? No 04/01/2024 Does the household have a re gular source of income? (Household - for ages 0-17 years) Not on file 04/01/2024 Social Connections Answer Date Recorded How often do you feel lonely or isolated from th ose around you? Never 04/01/2024 Financial Resource Strain Answer Date R ecorded Do you have any trouble payi ng for your medications, or do you think you might in the future? No 04/01/2024 Does your family have troubl e paying for medicine? (Household - for ages 0-17 years) Not on file 04/01/2024 Transportation Needs Answer Date Record ed READ ONLY Do you have troubl e getting a ride to medical visits or work? Never True 04/01/2024 Does your family have a hard time getting a ride to doctors visits? (Household - for ages 0-17 years) Not on file 04/01/2024 Has lack of transportation k ept you from medical appointments, meetings, work, or from getting things needed for daily living? Check all that apply. No 04/01/2024 Do you (or your family) have trouble finding or paying for a ride (transportation)? (Household - for ages 0-17 years) Not on file 04/01/2024 Housing Stability Answer Date Recorded Do you currently live in a s helter or have no steady place to sleep at night? No 04/01/2024 READ ONLY Do you think you a re at risk of becoming homeless? No 04/01/2024 Does your family worry about paying for your home or becoming homeless? (Household - for ages 0-17 years) Not on file 1 Are you homeless or worried that you might be in the future? No 04/01/2024 Are you (or your family) harmeet eless or worried that you might be in the future? (Household - for ages 0-17 years) Not on file Food Insecurity Answer Date Recorded Do you need food for this week? No 04/01/2024 Are you able to get enough f ood for your family? (Household - for ages 0-17 years) Not on file 04/01/2024 Does your family need food t his week? (Household - for ages 0-17 years) Not on file 04/01/2024 Do you always have enough fo od for your family? 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 Please contact pt by phone number listed on profile to schedule appt. Refer to referral for scheduling. documented in this encounter Plan of Treatment Upcoming Encounters Date Type Department Care Team (Late st Contact Info) Description 05/14/2024 1:30 PM EST Imaging Radiology [facility] [address] [place] [address] 11/12/2024 1:00 PM EDT Office Visit Family Practice [facility] [address] [facility] [place] [address] Jere Bullard, DO [address] [facility] [address] 12/09/2024 9:30 AM EDT Office Visit [facility] [address] [place] [id number] Ayanna Wan CRNP [address] [place] [id number] Health Maintenance Due Date Last Done Comments Depression Screening 1965 Cologuard 1998 Colonoscopy 1998 Colorectal Cancer Screening 1998 Fecal Occult Blood Test 1998 Sigmoidoscopy 1998 DTap/Tdap Vaccines (1 - Tdap) 06/20/2008 06/19/2008 Adult Wellness Visit 2019 Lipid Panel 09/25/2028 09/26/2023, 08/03/2022 Zoster Vaccines Completed 07/09/2019, 03/07/2019 Pneumococcal Vaccine: 65+ Years Completed 04/28/2020, 02/14/2019, 03/28/2018, Additional history exists Influenza Vaccine (FLU shot) Completed 03/2024, 02/19/2024, 03/07/2023, Additional history exists COVID-19 Vaccine Completed 03/11/2024, 05/10/2023 HPV (Gardasil) Vaccine Aged Out No lo nger eligible based on patient's age to complete this topic Hepatitis B Vaccine Aged Out No longe r eligible based on patient's age to complete this topic MENINGOCOCCAL (MENACTRA/MENVEO) Aged Out No longer eligible based on patient's age to complete this topic documented as of this encounter Medical Devices Not on filedocumented as of this encounter Care Teams News Videotape Editor Relationship Specialty Start Date End Date Jere Bullard DO [address] [place] [address] PCP - General Family Medicine 07/25/22 documented as of this encounter
--- OUTSIDE RECORDS SUMMARY | 2024-05-22 22:04 | External Medical Summary | Summary of Care ---
Author Name Unknown Organization [facility] Address [address] [facility] [place] [address] Phone [phone] Care Team Providers Care Landfill Gas Collection Operator Name Role Phone Jere Bullard DO Primary Care Provider [phone] Encounter Details Date Type Department Care Team (Late st Contact Info) Description 05/01/2024 Orders Only Family Practice [facility] [place] [address] [facility] [place] [address] Jere Bullard DO 200 [facility] [place] [address] Allergies Active Allergy Reactions Criticality Noted Date Comments Penicillins Hives 10/08/2016 documented as of this encounter (statuses as of 05/01/2024) Medications Ascorbic Acid 1000 MG Oral Tablet Take 1 Tablet by mouth in the morning. Active Cyanocobalamin 100 MCG Oral Tablet Take 1 Tablet by mouth in the morning. Active [place] 3-6-9 Oral Capsule Take by mouth. Ac [...] at bedtime. 30 Capsule 5 4 Active Diclofenac Sodium 1 % External Gel (Voltaren) Apply topically to affected area 2 times a day. Apply to right lower leg 100 g 5 4 Active documented as of this encounter (statuses as of 05/01/2024) Active Problems Problem Noted Date Diagnosed Date Enlargement of aortic root 02/22/2024 Overview (02/22/2024): Recheck 03/05 Prostate cancer 02/14/2023 Neuropathy of right lower extremity 02/14/2023 Impaired fasting glucose 02/14/2023 PANCHO (obstructive sleep apnea) 07/25/2022 Pure hypercholesterolemia 07/25/2022 documented as of this encounter (statuses as of 05/01/2024) Immunizations Name Administration Dates Next Due COVID-19, MRNA-LNP, PF, 30 M CG/0.3 mL, 12 YRS AND ABOVE, IM (PFIZER-Comirnaty) 03/11/2024 COVID-19, MRNA-LNP, PF, 50 M CG/0.5 mL, 12 YRS AND ABOVE, IM (MODERNA-Spikevax) 05/10/2023 Pneumococcal Conjugate Vacc, 13 Valent (Prevnar) 02/14/2019,03/28/2018 Pneumococcal Polysaccharide PPV23 (Pneumovax) 04/28/2020,05/09/2007 Season Influenza, Quad, PF, Adjuvanted, 65+ Yrs, IM (FLUAD) 03/07/2023,04/11/2022,03/03/2021,02/02 Seasonal Influenza, High Dos e, Trivalent, PF, IM (Fluzone HD) 02/19/2024 Seasonal Influenza, Quadriva lent Hd (Fluzone Hd) 02/19/2024 TD - Tetanus/Diptheria (ADULT) 06/19/2008 Zoster Vaccine [...] on file documented as of this encounter Plan of Treatment Upcoming Encounters Date Type Department Care Team (Late st Contact Info) Description 05/06/2024 1:00 PM EST Office Visit [facility] [address] [place] [address] Jere Bullard, DO [address] [place] [address] 11/12/2024 1:00 PM EDT Office Visit [facility] [address] [place] [address] Jere Bullard, DO [address] [place] [address] 12/09/2024 9:30 AM EDT Office Visit [facility] [address] [place] [phone] Ayanna Wan CRNP [address] [place] [address] Health Maintenance Due Date Last Done Comments [...] Not on filedocumented as of this encounter Procedures Procedure Name Priority Date/Time Associated Diagnosis Comments CHEMISTRY-OUTSIDE Routine 04/28/2024 CHEMISTRY-OUTSIDE Routine 04/28/2024 documented in this encounter Results * (ABNORMAL) CHEMISTRY-OUTSIDE (04/28/2024) Not all results display below - see scan for full detail OUTSIDE LAB (SEE SCANNED REPORT) Comment:SCAN INCLUDES: PT/IN R, PTT, UA, BMP, CBCD CREATININE 1.08 0.6 - 1.4 MG/DL OUTSIDE LAB (SEE SCANNED REPORT) EGFR 73.37 ML/MIN OUTSIDE LA B (SEE SCANNED REPORT) POTASSIUM 4.3 3.5 - 5.1 MMOL/L OUTSIDE LAB (SEE SCANNED REPORT) GLUCOSE 102(A) 70 - 99 MG/DL OUTSIDE LAB (SEE SCANNED REPORT) HOURS FASTING OUTSID E LAB (SEE SCANNED REPORT) TRIGLYCERIDES-OU TSIDE LAB OUTSIDE LAB (SEE SCANNED REPORT) CHOLESTEROL-OUTS MOHIT LAB OUTSIDE LAB (SEE SCANNED REPORT) HDL-OUTSIDE LAB OUTS MOHIT LAB (SEE SCANNED REPORT) CHOL/HDL RATIO-OUTSIDE LAB OUTSIDE LAB (SEE SCANNED REPORT) LDL (CALCULATED)-OUT SIDE LAB OUTSIDE LAB (SEE SCANNED REPORT) LDL (DIRECT MEASURE)-OUTSIDE LAB OUTSIDE LAB (SEE SCANNED REPORT) HEMOGLOBIN, W8D-XWOODYD LAB OUTSIDE LAB (SEE SCANNED REPORT) PHOSPHORUS-OUTSI DE LAB OUTSIDE LAB (SEE SCANNED REPORT) PTH-OUTSIDE LAB OUTS MOHIT LAB (SEE SCANNED REPORT) MICROALBUMIN RATIO-OUTSIDE LAB OUTSIDE LAB (SEE SCANNED REPORT) PROTEIN, UA-OUTSIDE LAB NEGATIVE NEGATIVE OUTSIDE LAB (SEE SCANNED REPORT) HGB 14.7 14.0 - 18.0 G/DL OUTSIDE LAB (SEE SCANNED REPORT) 04/28/2024 us Buddy Christensen MD LABORATORY Fi nal Result OUTSIDE LAB (SEE SCANNED REPORT) * (ABNORMAL) CHEMISTRY-OUTSIDE (04/28/2024) Not all results display below - see scan for full detail OUTSIDE LAB (SEE SCANNED REPORT) Comment:SCAN INCLUDES: CBCD, UA, BMP, PT/INR, PTT CREATININE 1.08 0.6 - 1.4 MG/DL OUTSIDE LAB (SEE SCANNED REPORT) EGFR 73.37 ML/MIN OUTSIDE LA B (SEE SCANNED REPORT) POTASSIUM 4.3 3.5 - 5.1 MMOL/L OUTSIDE LAB (SEE SCANNED REPORT) GLUCOSE 102(A) 70 - 99 MG/DL OUTSIDE LAB (SEE SCANNED REPORT) HOURS FASTING OUTSID E LAB (SEE SCANNED REPORT) TRIGLYCERIDES-OU TSIDE LAB OUTSIDE LAB (SEE SCANNED REPORT) CHOLESTEROL-OUTS MOHIT LAB OUTSIDE LAB (SEE SCANNED REPORT) HDL-OUTSIDE LAB OUTS MOHIT LAB (SEE SCANNED REPORT) CHOL/HDL RATIO-OUTSIDE LAB OUTSIDE LAB (SEE SCANNED REPORT) LDL (CALCULATED)-OUT SIDE LAB OUTSIDE LAB (SEE SCANNED REPORT) LDL (DIRECT MEASURE)-OUTSIDE LAB OUTSIDE LAB (SEE SCANNED REPORT) HEMOGLOBIN, A6O-QJRMEFF LAB OUTSIDE LAB (SEE SCANNED REPORT) PHOSPHORUS-OUTSI DE LAB OUTSIDE LAB (SEE SCANNED REPORT) PTH-OUTSIDE LAB OUTS MOHIT LAB (SEE SCANNED REPORT) MICROALBUMIN RATIO-OUTSIDE LAB OUTSIDE LAB (SEE SCANNED REPORT) PROTEIN, UA-OUTSIDE LAB NEGATIVE NEGATIVE OUTSIDE LAB (SEE SCANNED REPORT) HGB 14.7 14.0 - 18.0 G/DL OUTSIDE LAB (SEE SCANNED REPORT) 04/28/2024 Narrative OUTSIDE LAB (SEE SCANNED REPORT) - 05/01/2024 ENCOUNTER CREATED IN ERROR. THESE RESULTS WERE SENT TO THE WRONG PROVIDER. us Jose Norman MD LABORATORY Final Resul t OUTSIDE LAB (SEE SCANNED REPORT) documented in this encounter Care Teams Landfill Gas Collection Operator Relationship Specialty Start Date End Date Jere Bullard DO [facility] [place] [address] PCP - General Family Medicine 07/25/22 documented as of this encounter
--- OUTSIDE RECORDS SUMMARY | 2024-05-22 22:04 | External Medical Summary | Summary of Care ---
Author Name Unknown Organization [facility] Address [address] [facility] [address] Phone [phone] Care Team Providers Care Turnstile Attendant Name Role Phone ZeferinoJere george Primary Care Provider [phone] Encounter Details Date Type Department Care Team (Late st Contact Info) Description 04/28/2024 Result Scan Unspecified Department <No scans attached> Allergies Active Allergy Reactions Criticality Noted Date Comments Penicillins Hives 10/08/2016 documented as of this encounter (statuses as of 05/01/2024) Medications Ascorbic Acid 1000 MG Oral Tablet Take 1 Tablet by mouth in the morning. Active Cyanocobalamin 100 MCG Oral Tablet Take 1 Tablet by mouth in the morning. Active [place] 3-6-9 Oral Capsule Take by mouth. Ac [...] Description 05/06/2024 1:00 PM EST Office Visit [facility] [address] [place] [address] Jere Bullard, DO [address] [place] [address] 11/12/2024 1:00 PM EDT Office Visit [facility] [address] [place] [address] Jere Bullard, DO [address] [place] [address] 12/09/2024 9:30 AM EDT Office Visit [facility] [address] [place] [phone] Ayanna Wan CRNP [address] [place] [address] Health Maintenance Due Date Last Done Comments [...] Procedure Name Priority Date/Time Associated Diagnosis Comments EKG SCANNED RESULT 04/28/2024 documented in this encounter Results * EKG SCANNED RESULT (04/28/2024) 04/28/2024 us No Physician Data Unknown EKG Final Result documented in this encounter Care Teams Turnstile Attendant Relationship Specialty Start Date End Date Jere Bullard DO [address] [place] [address] PCP - General Family Medicine 07/25/22 documented as of this encounter
--- OUTSIDE RECORDS SUMMARY | 2024-05-22 22:04 | External Medical Summary | Summary of Care ---
Author Name Unknown Organization [facility] Address [address] [facility] [address] Phone [phone] Care Team Providers Care Aircraft Mechanic Structures Name Role Phone Jere Bullard DO Primary Care Provider [phone] Reason for Visit * Reason Comments Physical-Exam Pt is here for his a nnual physical. Encounter Details Date Type Department Care Team (Latest Contact Info) Description 05/06/2024 1:00 PM EST Office Visit [facility] [place] [address] [facility] [address] [place] [address] Jere Bullard DO 200 [facility] [place] [address] Pre-operative general physical examination*; Lump of right wrist; Pure hypercholesterolemia Allergies Active Allergy Reactions Criticality Noted Date Comments Penicillins Hives 10/08/2016 documented as of this encounter (statuses as of 05/06/2024) Medications Ascorbic Acid 1000 MG Oral Tablet Take 1 Tablet by mouth in the morning. Active Cyanocobalamin 100 MCG Oral Tablet Take 1 Tablet by mouth in the morning. Active [place] 3-6-9 Oral Capsule Take by mouth. Ac [...] as of this encounter (statuses as of 05/06/2024) Active Problems Problem Noted Date Diagnosed Date Enlargement of aortic root 02/22/2024 Overview (02/22/2024): Recheck 03/05 Prostate cancer 02/14/2023 Neuropathy of right lower extremity 02/14/2023 Impaired fasting glucose 02/14/2023 PANCHO (obstructive sleep apnea) 07/25/2022 Pure hypercholesterolemia 07/25/2022 documented as of this encounter (statuses as of 05/06/2024) Immunizations Name Administration Dates Next Due COVID-19, [...] on file documented as of this encounter Last Filed Vital Signs Vital Sign Reading Time Taken Comments Blood Pressure 122/82 05/06/2024 12:59 PM EST Pulse 79 05/06/2024 12:59 PM EST Temperature 36.6 C (97.8 F) 05/06/2024 12:[address] Respiratory Rate - - Oxygen Saturation 95% 05/06/2024 12:59 PM EST Inhaled Oxygen Concentration - - Weight 97.1 kg (214 lb) 05/06/2024 12:59 PM EST Height 193 cm (6' 4") 05/06/2024 12:59 PM EST Body Mass Index 26.05 05/06/2024 12:59 PM EST documented in this encounter Progress Notes * Jere Bullard, DO - 05/06/2024 1:17 PM EST Subjective: Kings Bennett is a 69 year old male. Chief Complaint Patient presents with Physical-Exam Pt is here for his annual physical. HPI: Pt here for a pre-op physical for L3 to S1 Revision decompression and fusion with Dr. Carey on 05/21 at [facility]. Blood counts and platelets look good, urine clear, metabolic panel with good blood sugar and kidneyfunction. INR of 1. EKG NSR with no signs of ischemia. No unusual bleeding. No CP or SOB with activity. No palpitations. No trouble swallowing. No history of poor reactions to anesthesia or surgery. Prior laminectomies with no issues. February ECHO reviewed with mild aortic root enlargement. PMHx, PSHx, SHx, FHx, Medications, and Allergies fully reviewed Patient Active Problem List Diagnosis PANCHO (obstructive sleep apnea) Pure hypercholesterolemia Prostate cancer (HCC) Neuropathy of right lower extremity Impaired fasting glucose Enlargement of aortic root (HCC) Current Outpatient Medications Medication Sig Dispense Refill Ascorbic Acid 1000 MG Oral Tablet Take 1 Tablet by mouth in the morning. Cyanocobalamin 100 MCG Oral Tablet Take 1 Tablet by mouth in the morning. [place] 3-6-9 Oral Capsule Take by mouth. Glucosamine-Chondroitin 500-400 MG Oral Tablet Take 1 Tablet by mouth in the morning. Triamcinolone Acetonide 0.1 % External Cream (Aristocort) Sildenafil Citrate 100 MG Oral Tablet Take 1 Tablet by mouth. Multi-Vitamin Oral Tablet Take 1 Tablet by mouth in the morning. Fluticasone Propionate 50 MCG/ACT Nasal Suspension (Flonase) Administer 2 Sprays into each nostril in the morning. Simvastatin 80 MG Oral Tablet (Zocor) Take 0.5 Tablets by mouth in the morning. 30 Tablet 5 tiZANidine HCl 2 MG Oral Tablet (Zanaflex) Take 1 Tablet by mouth every 6 hours as needed for Muscle spasms. 30 Tablet 0 DULoxetine HCl 30 MG Oral Capsule Delayed Release Particles (Cymbalta) Take 1 Capsule by mouth in the morning. 30 Capsule 11 Respiratory Therapy Supplies Device Use as directed. OAT Iron-Vitamin C 65-125 MG Oral Tablet (Vitron C) Take 1 tablet by mouth every other day as toleratedfor PLMD 45 Tablet 1 Diclofenac Sodium 1 % External Gel (Voltaren) Apply topically to affected area 2 times a day. Applyto right lower leg 100 g 5 Gabapentin 300 MG Oral Capsule (Neurontin) Take 1 Capsule by mouth at bedtime. 30 Capsule 5 No current facility-administered medications for this visit. Review of patient's allergies indicates: Allergen Reactions Penicillins Hives OBJECTIVE: BP 122/82 (BP Site: Left Arm, BP Position: Sitting, BP Cuff Size: Regular) | Pulse 79 | Temp 97.8 F (36.6 C) (Tympanic) | Ht 6' 4" (1.93 m) | Wt 214 lb (97.1 kg) | SpO2 95% | BMI 26.05 kg/m | BSA 2.28 m Estimated body mass index is 26.05 kg/m as calculated from the following: Height as of this encounter: 6' 4" (1.93 m). Weight as of this encounter: 214 lb (97.1 kg). BP Readings from Last 3 Encounters: 05/06/24 122/82 04/15/24 118/82 02/12/24 126/90 Wt Readings from Last 3 Encounters: 05/06/24 214 lb (97.1 kg) 04/15/24 215 lb (97.5 kg) 02/18/24 211 lb (95.7 kg) ROS: General: No change in weight, No weakness, No fatigue and No fevers, sweats, or chills Head: No significant headache and No recent significant head injury Eyes: No recent significant change in vision, No eye pain, redness, discharge, or excessive tearing, No diplopia and No h/o cataracts or glaucoma Ears: No recent change in hearing, No tinnitus or vertigo, No ear pain and No ear discharge Nose: No h/o frequent colds or sinusitis, No nasal stuffiness, No h/o hay fever and No significant epistaxis Throat/Oropharynx: No teeth or gum problems, No bleeding gums, No tongue complaints, No sore throatand No recent change in voice or hoarseness Neck: No complaint of lumps in neck, No swollen glands, No recent swelling in thyroid area and No significant pain in neck Respiratory: No cough, sputum, or hemoptysis, No wheezing, No shortness of breath and No recent change in breathing Cardiac: No chest pain, No shortness of breath, No dyspnea on exertion, No orthopnea, No paroxysmalnocturnal dyspnea, No edema, No palpitations and No syncope Gastrointestinal: No dysphagia, No significant heartburn, No significant change in appetite, No nausea, vomiting, diarrhea, or constipation, No hematemesis, No blood in stools or black tarry stools, No abdominal bloating or early satiety and No abdominal pain Urinary: No urinary frequency, No dysuria, No hematuria, No urinary urgency, No polyuria, No nocturia, No incontinence, No hesitancy and No sensation of incomplete voiding Hematologic: No anemia, No easy bruising or abnormal bleeding and No history of transfusion PHYSICAL EXAM: General: alert, healthy and no distress Head: Normocephalic, No masses, lesions, tenderness or abnormalities Ears: External ears normal, Canals clear, TM's Normal Nose: no mucosal erythema, no mucosal edema, no purulent discharge Oropharynx: no exudate, no erythema, lips, buccal mucosa, and tongue normal and mucous membranes are moist Heart: regular rate & rhythm, no murmurs and no gallops Lungs: chest symmetric with normal AP diameter, no chest deformities noted, no chest wall tenderness, lungs clear to auscultation Abdomen: abdomen soft, non-tender, normal bowel sounds and no masses or organomegaly Extremities: less than 2 second capillary refill, no joint deformities, effusion, or inflammation. R wrist with a lump. IT seems to push up on his artery making it pulsatile more than the lump being pulsatile itself. ASSESSMENT/Plan Pre-operative general physical examination (Primary) Lump of right wrist - US EXTREMITY MSK; Future; Expected date: 05/13/2024 Pure hypercholesterolemia Pt cleared for surgery with low likelihood of darin-operative complications. Check US for wrist and decide for follow-up based on that. The above was discussed and understanding was expressed. Jere Bullard DO documented in this encounter Nursing Notes * Kings Wills, Student - 05/06/2024 1:09 PM EST The patient has been properly identified by confirmation of name and date of . Chief Complaint Patient presents with Physical-Exam Pt is here for his annual physical. documented in this encounter Plan of Treatment Upcoming Encounters Date Type Department Care Team (Late st Contact Info) Description 11/12/2024 1:00 PM EDT Office Visit [facility] [place] [address] [facility] [place] [address] Jere Bullard DO [address] [facility] [place] [address] 12/09/2024 9:30 AM EDT Office Visit [facility] [place] [address] [place] [phone] Ayanna Wan CRNP [address] [place] [address] Scheduled Orders Name Type Priority Associated Diagnoses Orde r Schedule US EXTREMITY MSK Medical Imaging Routine Lump of right wrist Expected: 05/13/2024, Expires: 06/05/2025 Health Maintenance Due Date Last Done Comments [...] Not on filedocumented as of this encounter Visit Diagnoses Diagnosis Pre-operative general physical examination- Primary Other specified pre-operative examination Lump of right wrist Pure hypercholesterolemia documented in this encounter Care Teams Aircraft Mechanic Structures Relationship Specialty Start Date End Date Jere Bullard DO [address] [place] [address] PCP - General Family Medicine 07/25/22 documented as of this encounter
[2024-05-23 07:50] LABS: Hematocrit (blood only) 33.1 % (42.0-52.0); Mean Corpuscular Hemoglobin 32.8 pg (25.0-34.0); Mean Corpuscular Hgb Conc 33.2 g/dL (32.0-36.0); Mean Corpuscular Volume 98.8 fL (80.0-100.0); Mean Platelet Volume 10.6 fL (9.4-12.4); Platelet Count 186 K/uL (130-400); RDW Coefficient of Variation 13.1 % (11.5-14.5); RDW Standard Deviation 46.7 fL (36.4-46.3); Red Blood Count 3.35 M/uL (4.70-6.10); White Blood Count 11.64 K/ul (4.8-10.8)
[2024-05-23 08:23] LABS: Calcium 8.8 mg/dl (8.6-10.3); Creatinine Clr Calc Pharmacy 83.2 ml/min
--- NOTE | 2024-05-23 12:34 | Orthopedic Progress Note ---
Date of Service May 23, 2024 Assessment & Plan (1) Lumbosacral spondylosis with radiculopathy: Plan: At this time we will continue physical therapy monitor his ASHLEY output hopefully discharge home tomorrow. Admission and Anticipated Discharge Date Admission Date: May 21, 2024 Subjective Back pain controlled leg pain improved Physical Exam Physical Exam: Patient is currently in bed. He is constricted testing. Appears comfortable. Results & Data Vital Signs (Past 12 Hours) Vital Signs Temp Pulse Resp BP Pulse Ox O2 Del Method 05/23/24 07:23 36.8 C 76 15 147/63 H 96 Room Air
--- NOTE | 2024-05-23 17:48 | Hospitalist Progress Note ---
Date of Service May 23, 2024 Assessment & Plan (1) Lumbosacral spondylosis with radiculopathy: (2) Encounter for pre-operative examination: (3) Arthritis: (4) Prostate cancer: (5) BPH (benign prostatic hyperplasia): (6) Depression: (7) Neuropathy: (8) Hyperlipidemia: Plan Patient is a 69-year-old male with history of hypertension, lumbar radiculopathy, BPH and other medical problems who underwent lumbar decompression, fusion surgery by Dr. Hoff for lumbar spondylosis with radiculopathy. Lumbosacral spondylosis with radiculopathy S/P lumbar decompression, fusion surgery by Dr. Hoff on 05/21/24 Monitor for postop anemia Incentive spirometry DVT prophylaxis as per primary team Pain control PT OT as able Hx depression/neuropathy Continue gabapentin/duloxetine Hx HLD: Continue simvastatin Continue supplements as ordered. Diet: Regular DVT prophylaxis: per primary surgical team Dispo: per primary team Thank you for this consultation. We will follow the patient with you during their hospital stay. You can reach a member of the [facility] Hospitalist Team 01/01 via the hospitalist role on [employer] text. Admission and Anticipated Discharge Date Admission Date: May 21, 2024 Subjective Patient was seen sitting in the chair at bedside, stated pain was under control States that he is anticipating discharge tomorrow Denying any chest pain, shortness of breath or palps Review of Systems Review of Systems: All systems reviewed & are unremarkable except as noted in Subjective Physical Exam Physical Exam: General: Alert, oriented. No acute distress Psych: Appropriate mood and affect Neuro: difficulty with movements in the bed, lower back bandaged HEENT: NC/AT CV: RRR Resp: Breath sounds clear bilaterally, no increased effort of breathing Abdomen: Soft, nontender Extremities: No edema in lower extremities bilaterally. Results & Data Results & Data Vital Signs (Past 12 Hours) Vital Signs Temp Pulse Resp BP Pulse Ox O2 Del Method 05/23/24 14:34 37.0 C 78 18 139/65 93 Room Air 05/23/24 07:23 36.8 C 76 15 147/63 H 96 Room Air
[2024-05-24 06:22] LABS: Hemoglobin 11.9 g/dl (14.0-18.0); Mean Corpuscular Hemoglobin 32.6 pg (25.0-34.0); Mean Corpuscular Hgb Conc 33.1 g/dL (32.0-36.0); Mean Corpuscular Volume 98.6 fL (80.0-100.0); Mean Platelet Volume 10.8 fL (9.4-12.4); Platelet Count 206 K/uL (130-400); RDW Standard Deviation 46.2 fL (36.4-46.3); Red Blood Count 3.65 M/uL (4.70-6.10); White Blood Count 12.98 K/ul (4.8-10.8)
[2024-05-24 06:41] LABS: Anion Gap 4 (3-11); BUN Creatinine Ratio 19.2 (10-20); Blood Urea Nitrogen 20 mg/dl (6-23); Calcium 9.3 mg/dl (8.6-10.3); Carbon Dioxide 32 mmol/L (21-32); Chloride 103 mmol/L (98-107); Glucose 93 mg/dl (70-99(Fasting)); Sodium 139 mmol/L (136-145)
[2024-05-24 07:04] VITALS: BP 137/79; PULSE 69; RESP 18; TEMP 98.2; O2SAT 96
--- NOTE | 2024-05-24 08:42 | Discharge Summary ---
Date of Service May 24, 2024 Admission HPI Per Admitting Provider This is a 69-year-old male who presents with chronic persistent back and leg pain after failing course of nonoperative care is here for surgical invention. Principal Diagnosis Lumbar spondylosis with radiculopathy Discharge Data Allergies Allergy/AdvReac Type Severity Reaction Status Date / Time Penicillins Allergy Intermediate Hives Verified 05/21/24 10:52 Consultations 05/21/24 16:11 Consult Hospitalist Routine Procedures Performed Operation Date: 05/21/24 12:05 Actual Procedures p L3-S1 Decompression and Fusion Revision, Spinal Cord Monitoring(Not Applicable) - Jose Hoff DO Ordered Studies 05/21/24 11:50 [place] lumbar spine 2-3V Routine Hospital Course (1) Lumbosacral spondylosis with radiculopathy: Patient underwent multilevel lumbar decompression fusion tolerated as well as taken orthopedic for postoperative. Postoperatively he progressed appropriate. Marked improvement of his back and leg symptoms. ASHLEY drain decreasing. Excellent strength testing. Subsidy discharged home. Discharge orders and instructions from the chart for further review. Total Time Total Time Spent Total Time Spent (In Minutes): 20 minutes Discharge Plan Discharge Items Patient Disposition: Home - Self-Care Reason For Visit: Lumbar Region Foraminal Stenosis, Lumbar Stenosis Discharge Diagnosis: Lumbar spondylosis with radiculopathy Activity: As commented below Non-emergency contact: Primary Care Provider Call non-emergency contact if: you have any medication questions Follow-up/Referrals: Jere Bullard DO [Primary Care Provider] - Diet: Regular Addtl Attending Provider Instructions: ACTIVITY RECOMMENDATIONS: SELF CARE INSTRUCTIONS AFTER THORACIC/LUMBAR FUSIONS 1. You may walk to your tolerance. It is good exercise for your legs and back. Expect some back and intermittent leg aches and pains. 2. You may perform "counter-top" level activities (make a sandwich, jet with a project, etc.). 3. No bending or lifting of more than 10 pounds or back twisting of any nature (roll like a log when turning in bed). 4. You may ride in a car for 20-30 minutes at a time. No driving until after your first visit with your doctor. 5. Frequent changes of position and restricting sitting to 30 minutes at a time will help limit the amount of back spasms and stiffness you may experience. 6. You may discontinue the use of ambulatory aids (cane, crutches, etc.) once your strength and confidence allow. 7. You may special education superintendent the shower and let water strike your incision when you arrive home at least once daily. Do not take a tub bath, sit in a hot tub or go into a swimming pool until after your first recheck in the office. 8. You may resume previous diet. SPECIAL CARE INSTRUCTIONS: VERY IMPORTANT TO READ AND REVIEW A. Your surgical incision has been closed with a cosmetic suture under the skin that will dissolve in about 6 weeks. In 14 days, you can use a pair of clean scissors and cut the suture that is left outside of the skin at the ends of your incision. 1. The small skin tapes can be removed 7 days after surgery if they have not fallen off by that point. 2. You may keep the wound open to air as much as possible to promote healing after post-op day number 5 unless told otherwise by your doctor. 3. If you think the wound looks like it is becoming infected (redness or worsening drainage) and/or you are experiencing fever, chill or worsening back pain and muscle spasms, contact the office so that we may evaluate you as soon as possible. B. Complications are uncommon, but please contact us if you have any signs or symptoms of: 1. wound infection (fever higher than 102.5 degrees F, redness, separation of wound, drainage, or increasing pain from the incision) 2. blood clots in legs (pain, swelling, redness and warmth in legs) 3. urinary tract infection (fever higher than 102.5 degrees F, burning upon urination or increased frequency of urination) 4. nerve problems (inability to walk on your toes or heels, numbness, loss of bowel or bladder control) 5. any other symptoms that concern you C. Please call the office at if you have any concerns or quest ions about your operation or recovery. D. No smoking! Smoking drastically decreases the chance of a solid fusion. E. Do not take any anti-inflammatory medications (Indocin, Advil, Motrin, Aspirin, Naprosyn, etc.) as these may inhibit the chance of a solid fusion. Tylenol is okay to take for pain. MANAGING PAIN AFTER SPINAL SURGERY 1. Narcotic medication is intended for short-term use and will be provided for surgical pain. Surgical pain usually lasts for a period of 4-6 weeks. Narcotic medication includes Percocet, Vicodin, Darvocet, Tylenol #3 or Lortab. 2. Longer-term pain is more appropriately treated with non-narcotic medication such as Tylenol ES. 3. Muscle spasm is not appropriately treated with narcotics. Muscle relaxers such as Soma, Flexeril or Skelaxin can be used along with Tylenol ES. 4. Remember that we all live with some "aches and pains". This is not unusual or uncommon after an injury or as we get older. a. Back pain is expected and may include muscle spasms for 4 to 6 weeks after surgery. The pain should gradually improve. If the pain worsens for no apparent reason, please contact the office. b. Intermittent leg pain may also be experienced and should not be concerned about unless it worsens for no apparent reason. If so, please contact the office. 5. We will provide appropriate medication within the normal guidelines of their prescribed use. We will also be very cautious and aware of potential abuse and extended duration of patients' medication needs. a. Pain medications are for your comfort and to assist with sleep and rest so that the tissue can heal. They are not provided in order to return to normal activity and should not be used through the day. To do so or worsening pain at night can result from ongoing tissue damage and development of tolerance to the prescribed medicine. 6. Please allow 2-3 days to process refills. Prescriptions will not be mailed but must be picked up at the office. FOLLOW UP VISIT: Keep your scheduled follow-up appointment. Any questions, please call the office at . Pending Studies at Discharge: No Stand-Alone Forms: [facility], Smoking Cessation Medications and DC Order Prescriptions: New tramadol 50 mg tablet 50 mg PO Q6H PRN (Reason: pain, moderate) Qty: 30 0RF oxycodone 5 mg tablet 5 mg PO Q6H PRN (Reason: pain) Qty: 30 0RF Continued duloxetine [Cymbalta] 30 mg capsule,delayed release(DR/EC) 30 mg PO QAM multivitamin Tablet 1 tab PO QAM ascorbic acid (vitamin C) [Vitamin C] 1,000 mg Tablet 1 g PO QAM simvastatin 80 mg Tablet 40 mg PO QAM cyanocobalamin (vitamin B-12) 500 mcg Tablet 500 mcg PO QAM gabapentin 300 mg Capsule 300 mg PO HS cholecalciferol (vitamin D3) [Vitamin D3] 25 mcg (1,000 unit) Tablet 25 mcg PO QAM omega 4-yls-kcf-fish oil [Fish Oil] 1,200 (144-216) mg Capsule 1 cap PO QAM Turmeric/Curcumin 1,000 mg PO QAM Discharge Orders: Discharge Order (Routine); Ordered 05/24/24 Ordered By: Jose Hoff Admission Data Admit Date/Time: 05/21/24 14:59 Attending Provider: Jose Hoff Admit Provider: Jose Hoff Primary Care Provider: Jere Bullard Other Providers: Pily Junior
--- NOTE | 2024-05-24 10:21 | Hospitalist Progress Note ---
Date of Service May 24, 2024 Assessment & Plan (1) Lumbosacral spondylosis with radiculopathy: (2) Encounter for pre-operative examination: (3) Arthritis: (4) Prostate cancer: (5) BPH (benign prostatic hyperplasia): (6) Depression: (7) Neuropathy: (8) Hyperlipidemia: Plan Patient is a 69-year-old male with history of hypertension, lumbar radiculopathy, BPH and other medical problems who underwent lumbar decompression, fusion surgery by Dr. Hoff for lumbar spondylosis with radiculopathy. Lumbosacral spondylosis with radiculopathy S/P lumbar decompression, fusion surgery by Dr. Hoff on 05/21/24 Monitor for postop anemia. preop hemoglobin of 12.2, 11.9 on discharge. Stable. Incentive spirometry DVT prophylaxis as per primary team Pain control PT OT as able Hx depression/neuropathy Continue gabapentin/duloxetine Hx HLD: Continue simvastatin Continue supplements as ordered. Diet: Regular DVT prophylaxis: per primary surgical team Dispo: discharge home today per primary team Thank you for this consultation. We will follow the patient with you during their hospital stay. You can reach a member of the [facility] Hospitalist Team 01/01 via the hospitalist role on [employer] text. Admission and Anticipated Discharge Date Admission Date: May 21, 2024 Subjective Patient was seen sitting in the chair at bedside, stated pain was under control stated that he was being discharged today Denying any shortness of breath, chest pain or palpitations Notes that he has been passing gas and is on medications to help him have a bowel movement Review of Systems Review of Systems: All systems reviewed & are unremarkable except as noted in Subjective Physical Exam Physical Exam: General: Alert, oriented. No acute distress Psych: Appropriate mood and affect Neuro: difficulty with movements in the chair, lower back bandaged HEENT: NC/AT CV: RRR Resp: Breath sounds clear bilaterally, no increased effort of breathing Abdomen: Soft, nontender Extremities: No edema in lower extremities bilaterally. Results & Data Results & Data Vital Signs (Past 12 Hours) Vital Signs Temp Pulse Resp BP Pulse Ox O2 Del Method 05/24/24 07:01 36.8 C 69 18 137/79 96 Room Air
== END 2024-05-24 12:40 | disposition home or self-care (01) | DRG 428 ==
LOC: ASU 10:27 → 3N 14:59